=== PATIENT | male | born 1955 | race Caucasian/White ===

== ENCOUNTER 2018-06-01 21:30 | Emergency (ER) | payer OTHER ==
--- NOTE | 2018-06-01 22:12 | EDPHY ---
H & P Stated Complaint: "BLEEDING" L EYE/HX RETINAL TEAR R EYE Time Seen by Provider: 06/01/18 22:12 HPI/ROS: HPI CHIEF COMPLAINT: Discoloration out of left eye. HISTORY OF PRESENT ILLNESS: This is a very pleasant 63-year-old male, he presents emergency room with over an hour of orange discoloration of his left eye. He states he was sitting there and noticed all the sudden his central vision he had a orange discoloration. Mainly in his central vision. He describes a dime-sized spot of arms. He stills peripheral vision intact. No loss of vision. No blackness. No eye pain. No tearing. No trauma. No recent illness. However patient does report that he has near vision, uses corrective lenses, and at a young age in his teenage years he had a retinal detachment or tear out of his right eye and he is dependent on his left eye to have vision. This concerned him with central arch discoloration so decided come the emergency room. Is still present. He denies floaters, denies curtain vision, denies loss of vision, denies blackness. [place]. Past Medical History: Denies significant medical history however has a history of retinal tear in right eye, additionally corrective lenses Past Surgical History: No recent surgery Social History: Lives here in [place] part-time as well as [place]. Family History: Noncontributory ROS REVIEW OF SYSTEMS: 10 Systems were reviewed and negative with the exception of the elements mentioned in the history of present illness. Exam Constitutional appears well nontoxic, triage nursing summary reviewed, vital signs reviewed, awake/alert. Eyes normal conjunctivae and sclera Left EYE: Pupil equal round react to light, anterior chamber normal, conjunctiva normal, globe is soft, extraocular movements intact, I did perform an ultrasound of his eye I do not appreciate any retinal detachment, nor do I appreciate a significant debris in the back of his eye like vitreous hemorrhage. The back of redness mood. The optic nerve does not appear inflamed on ultrasound. Visual acuity is been reviewed. HENT normal inspection, atraumatic, moist mucus membranes, no epistaxis, neck supple/ no meningismus, no raccoon eyes. Respiratory clear to auscultation bilaterally, normal breath sounds, no respiratory distress, no wheezing. Cardiovascular rate normal, regular rhythm, no murmur, no edema, distal pulses normal. Gastrointestinal soft, non-tender, no rebound, no guarding, normal bowel sounds, no distension, no pulsatile mass. Genitourinary no CVA tenderness. Musculoskeletal no midline vertebral tenderness, full range of motion, no calf swelling, no tenderness of extremities, no meningismus, good pulses, neurovascularly intact. Skin pink, warm, & dry, no rash, skin atraumatic. Neurologic awake, alert and oriented x 3, AAOx3, moves all 4 extremities equally, motor intact, sensory intact, CN II-XII intact, normal cerebellar, normal vision, normal speech. Psychiatric normal mood/affect. Heme/Lymph/Immune no lymphadenopathy. Differential Diagnosis: Includes but is not limited to in a particular order retinal detachment, vitreous hemorrhage, macular edema, lens displacement, infection, glaucoma, foreign body Medical Decision Making: Patient extensive eye exam here without dilatation, I am unable to visualize any significant vitreous hemorrhage or retinal detachment on exam. Re-evaluation: 2243: Discussed the case in detail with Ophthalmology spoke with Dr. Daniel, he will come and see and evaluate the patient. 2246: Visual acuity repeated. Out of his right eye which is his known bad I he can only read the top line. On his left eye: Patient states that he has a red hue arch you in the center of his vision. He is unable to read below the top line. 2351: PAtient seen and evaluated by Optho. Dr. Daniel Shows Macular Bleed. will follow up tomorrow with retina clinic. Source: Patient - Personal History Current Tetanus Diphtheria and Acellular Pertussis (TDAP): Yes - Medical/Surgical History Hx Asthma: No Hx Chronic Respiratory Disease: No Hx Diabetes: No Hx Cardiac Disease: No Hx Renal Disease: No Hx Cirrhosis: No Hx Alcoholism: No Hx HIV/AIDS: No Hx Splenectomy or Spleen Trauma: No Other PMH: R RETINAL TEAR - Social History Smoking Status: Never smoked Constitutional: Initial Vital Signs Temperature (C) 37.2 C 06/01/18 21:34 Heart Rate 83 06/01/18 21:34 Respiratory Rate 16 06/01/18 21:34 Blood Pressure 139/83 H 06/01/18 21:34 O2 Sat (%) 95 06/01/18 21:34 O2 Delivery Mode Room Air Allergies/Adverse Reactions: No Known Allergies Allergy (Unverified 06/01/18 21:38) Home Medications: Medication Instructions Recorded Aspirin 325 mg (*) 06/01/18 Lipitor 06/01/18 Zoloft 100mg (*) 06/01/18 Medical Decision Making - Data Points Medications Given: Discontinued Medications Tropicamide (Mydriacyl 1%) 1 drops EACHEYE ONCE ONE Stop: 06/01/18 22:45 Last Admin: 06/01/18 23:19 Dose: 2 drops Departure - Departure Disposition: Home, Routine, Self-Care Clinical Impression: Vision blurred Condition: Good Instructions: Blurred Vision (ED) Referrals: NONE *PRIMARY CARE P,. [Primary Care Provider] - As per Instructions Manuel Daniel MD [Medical Doctor] - As per Instructions
[2018-06-01] MEDS ORDERED: TROPICAMIDE 1% 15 ML OPHT.BTL EACHEYE ONE (22:44)
[2018-06-02 00:01] VITALS: BP 134/72
--- NOTE | 2018-06-02 00:34 | GCON ---
OPHTHALMOLOGY CONSULTATION DATE OF CONSULTATION: 06/01/2018 Consult was requested by ER staff. HISTORY OF PRESENT ILLNESS: The patient is a 63-year-old who was in his usual state of health until he noticed visual obscuration of his left eye while watching television. He reported normal vision o n a recent camping trip and had just gotten home when he was watching television and noticed a red-or che hue in his central vision that obscured his central acuity. 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 He denies other past ocular history. He recently moved to [place] and reports his last retinal examination was about a [place] ago out of state. His past ocular history includes very high my opia of about -14 in his right eye and -16 in his left eye. PAST MEDICAL HISTORY: Significant for elevated cholesterol. MEDICATIONS: Include Lipitor, aspirin, and Zoloft. ALLERGIES: No known drug allergies. SOCIAL HISTORY: The patient recently moved to [place]. 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 FAMILY HISTORY: Noncontributory. OPTHALMIC EXAMINATION: Visual acuity with correction is count fingers at 5 feet in the left eye. Ex traocular motility is full. Bedside examination reveals normal lids and lashes. Conjunctivae and sc lerae are normal. Corneas are clear, both eyes. Anterior chambers are formed. The patient does hav e incipient cataracts in both eyes. Dilated exam: The patient was dilated with 1% tropicamide. Optic nerve head reveals a small cup of 0.15 with significant peripapillary atrophy. He does have macular scar as noted previously in his ri ght eye. In the left eye, there is scant vitreous hemorrhage with a central macular preretinal hemor rhage. Vasculature overall appears reasonably normal with no attenuation or obvious plaque or occlus ion. Peripherally, the patient has a significant cobblestone and lattice degeneration. ASSESSMENT: Macular hemorrhage, etiology is uncertain, though is concerning for choroidal neovascula rization given patient's high myopathy. There is no evidence of a pterygoid detachment on examinatio n. Given the patient's monocular status and limited vision in the left eye, a retinal consultation w as arranged for tomorrow for further workup and treatment. /[id number]/MODL
== END 2018-06-02 00:42 | disposition home or self-care (01) ==
DX: H53.8 Other visual disturbances (principal)